=== PATIENT | female | born 1985 | race Caucasian/White ===

== ENCOUNTER 2023-08-04 18:00 | Outpatient (CLI) | payer MEDICAID, SELFPAY ==
[2023-08-04] VITALS (22 sets, daily range): BP systolic 117; BP diastolic 61; PULSE 101–139; RESP 18; TEMP 36.9; O2SAT 85–100; BMI 34.2
[2023-08-04 19:06] LABS: Color, Urine Yellow (Yellow); Glucose, Dipstick 100 mg/dl (Normal); Ketone-Dipstick 5 mg/dl (Negative); Leukocyte Esterase-Dipstick 25 /ul (Negative); Nitrite-Dipstick Negative (Negative); Occult Blood-Urine 10 /ul (Negative); Protein-Dipstick 30 mg/dl (Negative); Urine Bilirubin Dipstick 1 mg/dL (Negative); Urine Clarity Cloudy (Clear); Urine Urobilinogen 4 mg/dl (Normal)
[2023-08-04] MEDS: Lactated Ringers 1,000 ML 999 ML IV (19:40)
[2023-08-04 19:58] LABS: Hematocrit 30.5 % (37-47); Hemoglobin 9.8 g/dL (12.0-15.0); Mean Corp Hgb Conc 32.1 g/dL (32-36); Mean Corpuscular Hgb 28.2 pg (27.0-32.0); Mean Corpuscular Volume 87.9 fL (81-99); Mean Platelet Vol. 11.6 fl (6.2-12.0); Platelet Count 174 K/mm3 (150-450); RBC Distribution Width CV 13.7 % (11.6-14.6); RBC Distribution Width SD 43.5 fl (35.1-43.9); Red Blood Count 3.47 M/mm3 (4.2-5.4); White Blood Count 7.1 K/mm3 (4.4-11.0)
[2023-08-04 20:16] LABS: ALB/GLOB Ratio 0.6 RATIO (0.9-2.4); AST(SGOT) 27 U/L (15-37); Alanine Aminotransfer ALT/SGPT 23 U/L (13-56); Albumin, Serum 2.3 g/dL (3.2-5.0); Alkaline Phosphatase 163 U/L (45-117); Anion Gap 8 (5-15); BUN 4 mg/dL (7-18); Calcium,Total 8.9 mg/dL (8.5-10.1); Chloride 107 mmol/L (98-107); EST Glomerular Filtration Rate 147 mL/min (>60); Est Glom Filt Rate - Afr Amer 178 mL/min (>60); Estimated Creatinine Clearance 169.48 ml/min; Globulin 3.7 g/dL (2.2-4.2); Glucose 118 mg/dL (74-106); Sodium Level 136 mmol/L (136-145)
[2023-08-04] MEDS: Potassium Chloride Oral Tablet 20 MEQ PO (21:02)
[2023-08-04] MEDS: Acetaminophen 500 MG Tablet 1000 MG PO (22:13)
[2023-08-04] MEDS: Nitrofurantoin Macrocrystals 100 MG Capsule PO (22:13)
--- NOTE | 2023-08-15 14:02 | OB.TRI.NOTE ---
HPI - General HPI Narrative KIANNA NIX, is a 38 F who presents at 35w4d with BALJEET 09/03 for rule out labor. PFSH PFSH Home Medications NK 08/04/23 [History Last Taken Unknown] Allergy/AdvReac Type Severity Reaction Status Date / Time No Known Allergies Allergy Verified 08/04/23 18:30 NST FHR Rate Baby A Baseline: 155 Variability:: Moderate Accelerations:: 15 x 15 Decelerations:: None NST Reactive:: Yes Uterine Activity:: irregular Assessment & Plan (1) False labor: PLAN: Plan 1) False labor 2) D/C home
== END 2023-08-04 22:45 | disposition home or self-care (01) ==
LOC: WPOUT 18:12 → WP 18:13
PROVIDERS: Referring Provider Advanced Practice Midwife; Visit Provider Advanced Practice Midwife
DX: O47.03 False labor before 37 completed weeks of gestation, third trimester (principal); Z3A.35 35 weeks gestation of pregnancy
CPT/HCPCS: 96360; 59025; 59050; 80053; 81002; 85027; 87086; 87088; 99221; J7120; G0378

== ENCOUNTER 2023-08-22 09:45 | Outpatient (CLI) | payer MEDICAID, SELFPAY ==
[2023-08-22 10:05] VITALS: RESP 16; TEMP 36.7
[2023-08-22 10:07] VITALS: BP 112/66; PULSE 85
[2023-08-22 10:21] VITALS: BMI 34.8
[2023-08-22 11:00] VITALS: RESP 16; TEMP 36.7
--- NOTE | 2023-08-22 20:10 | OB.TRI.NOTE ---
HPI - General General Date of Service: 08/22/23 HPI Narrative KIANNA NIX, is a 38 F @ 38 weeks who presents c/o contractions PFSH PFSH Home Medications NK 08/04/23 [History Last Taken Unknown] Allergy/AdvReac Type Severity Reaction Status Date / Time No Known Allergies Allergy Verified 08/22/23 10:20 NST FHR Rate Baby A Baseline: 145 Variability:: Moderate Accelerations:: 15 x 15 Decelerations:: None NST Reactive:: Yes FHR Category:: Category I Uterine Activity:: irregular Assessment & Plan (1) False labor: PLAN: Plan @ 38 weeks false labor 1) unchanged cervical exam per RN- false labor- dc home 2) NSt reactive cat 1
== END 2023-08-22 11:10 | disposition home or self-care (01) ==
LOC: WPOUT 09:57 → WP 09:58
PROVIDERS: Referring Provider Obstetrics & Gynecology; Visit Provider Obstetrics & Gynecology
DX: O47.1 False labor at or after 37 completed weeks of gestation (principal); Z3A.38 38 weeks gestation of pregnancy
CPT/HCPCS: 59025; 59050; 99221; G0378

== ENCOUNTER 2023-08-29 07:00 | Inpatient (IN) | payer MEDICAID, SELFPAY ==
[2023-08-29] VITALS (63 sets, daily range): BP systolic 110–145; BP diastolic 59–85; PULSE 74–150; RESP 16–18; TEMP 36.5–37.2; O2SAT 80–100; BMI 34.9
[2023-08-29] MEDS: Lactated Ringers 1,000 ML 50 ML IV (07:39)
[2023-08-29] MEDS: LACTATED RINGERS 500 ML 999 ML IV ×2 (07:50→09:58)
[2023-08-29 07:55] LABS: Absolute Lymphocyte Count 1.68 X10^3/uL (0.83-4.51); Absolute Neutrophil Count 5.7 X10^3/uL (2.0-7.7); Basophil# 0.03 X10^3/uL; Basophil% 0.4 % (0-1); Eosinophil# 0.04 X10^3/uL; Eosinophils% 0.5 % (0-5); Hematocrit 33.8 % (37-47); Hemoglobin 10.9 g/dL (12.0-15.0); Lymphocyte # 1.68 X10^3/ul (0.83-4.51); Lymphocyte % 20.9 % (19-41); Mean Corp Hgb Conc 32.2 g/dL (32-36); Mean Corpuscular Hgb 27.8 pg (27.0-32.0); Mean Corpuscular Volume 86.2 fL (81-99); Mean Platelet Vol. 11.8 fl (6.2-12.0); Monocyte# 0.45 X10^3/uL; Monocyte% 5.6 % (0-10); NRBC Flagged by Analyzer 0 % (0-5); Neutrophil # 5.71 X10^3/uL (2.7-7.7); Neutrophil % 71.2 % (47-70); Platelet Count 201 K/mm3 (150-450); RBC Distribution Width CV 14.1 % (11.6-14.6); RBC Distribution Width SD 43.9 fl (35.1-43.9); Red Blood Count 3.92 M/mm3 (4.2-5.4)
[2023-08-29 08:39] LABS: Syphilis Antibodies Non-reactive
[2023-08-29] MEDS: Oxytocin 15 Units/NS 250ml 15 UNITS/250 ML IV.SOLN 2 UNITS IV (08:42)
[2023-08-29] MEDS: 0.9% Normal Saline Single 100 ML IV.SOLN. INTRA-UTER (08:48)
--- NOTE | 2023-08-29 08:50 | PCM.HP.OB ---
HPI - General General Date of Admission: 08/29/23 Date of Service: 08/29/23 HPI Narrative KIANNA NIX, is a 38 F who presents for induction. Maternal Data Information Final BALJEET: 09/04/23 Gestational age: 39&1 PFSH [facility] Medical History ADD (attention deficit disorder) Anxiety Depression Generalized headaches Vitamin B12 deficiency neuropathy Home Medications NK 08/04/23 [History Last Taken Unknown] Allergy/AdvReac Type Severity Reaction Status Date / Time No Known Allergies Allergy Verified 08/29/23 08:07 Surgical History History of surgery Social History Smoking Status: Former smoker History Elective abortions Hx Para 3 Spontaneous abortions Hx # Term Pregnancies Ectopic pregnancies Hx # Pregnancies Multiple births # of living children NST FHR Rate Baby A Baseline: 140 Variability:: Moderate Accelerations:: 15 x 15 Decelerations:: None Uterine Activity:: Irregular Vital Signs Vital Signs Vital Signs: 08/29/23 07:25 08/29/23 07:25 08/29/23 07:25 Temperature Temperature Source Temporal Pulse Rate 82 Respiratory Rate Blood Pressure 119/60 BP Systolic 119 BP Diastolic 60 08/29/23 07:25 08/29/23 07:25 08/29/23 08:44 Temperature 98.1 F Temperature Source Pulse Rate Respiratory Rate 16 Blood Pressure 113/77 BP Systolic 113 BP Diastolic 77 08/29/23 08:44 08/29/23 08:43 08/29/23 08:43 Temperature Temperature Source Temporal Pulse Rate 93 Respiratory Rate 16 Blood Pressure BP Systolic BP Diastolic 08/29/23 08:43 Temperature 97.8 F Temperature Source Pulse Rate Respiratory Rate Blood Pressure BP Systolic BP Diastolic Weight Weight: 203 lb 7.787 oz Body Mass Index (BMI) 34.9 Physical Exam Const alert Chest inspection of chest normal GI soft to palpation, non-tender and non-distended Inspection: gravid external exam normal Narrative: cvx - 1.5/80/-2 Extremity no calf tenderness Labs Labs Labs: Blood Type A NEGATIVE Antibody Screen NEGATIVE Hct 33.8 % (37-47) L Hgb 10.9 g/dL (12.0-15.0) L Syphilis Total Ab Non-reactive see [facility] H&P Assessment & Plan (1) 39 weeks gestation of : (2) Advanced maternal age (AMA) in : PLAN: Plan Admit to L&D Induction - intracervical cervantes placed and pitocin started Pain - epidural when desired GBS negative EFW - less than 4500g, patient with adequate pelvis Routine care
[2023-08-29] MEDS: fentaNYL-bupivacaine (epidural) 100 ML BAG EPIDURAL ×2 (10:51→15:13)
[2023-08-29] MEDS: Acetaminophen 500 MG Tablet PO (13:34)
[2023-08-29] MEDS: Lactated Ringers 1,000 ML 200 ML IV (14:53)
--- NOTE | 2023-08-29 17:16 | EX.PCM.OBRPT ---
Maternal Data Information Final BALJEET: 09/04/23 Gestational age: 39&1 Vaginal Delivery Maternal Presentation Maternal Presentation: Elective Induction Type of Induction: Pitocin, Shah Bulb and Amniotomy Operative Information Date of Procedure: 08/29/23 Pre-Operative Diagnosis: Advanced maternal age Post-Operative Diagnosis: Same Surgery / Procedure Performed: Spontaneous Vaginal Delivery Type of Anesthesia: Epidural Estimated Blood Loss: 500ml Findings Description of Procedure: Patient prepped & draped when C/C/+2. She pushed well to deliver the head. head gently guided to allow delivery of anterior and posterior shoulders. No excess traction placed on head. Body delivered and 3VC clamped & cut in delayed fashion. Placenta did not deliver with gentle traction and fundal massage. At 30+ minutes after delivery the placenta was manually extracted. The uterus was manually explored and confirmed to be free of products of conception. Good uterine tone obtained. Presentation: SHEYLA Amniotic Membrane Rupture Type: Artificial Amniotic Fluid Description: Clear Placental Delivery Description: Expressed Placenta Disposition: [facility] Specimen(s) Removed: Placenta Cord Vessel Description: 3 Vessels Cord Entanglement: None Infant A Gender: Male (Derrek) (1 minute): 8 (5 minute): 9 Delayed Cord Clamping: Yes Post Vaginal Delivery Medications Given After Delivery: IV Pitocin Episiotomy Description: None Laceration: None
[2023-08-29] MEDS: Oxytocin 15 Units/NS 250ml 15 UNITS/250 ML IV.SOLN 83 UNITS IV (17:30)
[2023-08-29] MEDS: Cefazolin 2 GM in 0.9% Normal Saline (100mL Bag) 100 ML IV (18:30)
[2023-08-29] MEDS: Ibuprofen 600 MG Tablet PO (18:30)
[2023-08-29 21:05] LABS: HIV - WCH Non-Reactive (Nonreactive); Hepatitis B Surface Antibody Non-Reactive; Hepatitis B Surface Antigen Non-Reactive (Nonreactive); Hepatitis C Antibody Non-Reactive (Nonreactive)
[2023-08-30] MEDS: Ibuprofen 600 MG Tablet PO ×3 (00:38→12:27)
[2023-08-30 00:41] VITALS: BP 121/73; PULSE 105; RESP 16; O2SAT 97
[2023-08-30] MEDS: Acetaminophen 500 MG Tablet 1000 MG PO ×3 (01:18→13:59)
[2023-08-30 04:20] VITALS: BP 120/75; PULSE 90; RESP 16
[2023-08-30 07:57] VITALS: BP 108/70; PULSE 94; RESP 16; O2SAT 99
--- NOTE | 2023-08-30 08:44 | PCM.PN.OB ---
Subjective Subjective Doing well. Ambulating and voiding well. . Would like to go home today. Objective Data Objective Data Vital Signs: Vital Signs Temp Pulse Resp BP Pulse Ox O2 Del Method 98.0 F 94 16 108/70 99 Room Air 08/29/23 19:50 08/30/23 07:57 08/30/23 07:57 08/30/23 07:57 08/30/23 07:57 08/30/23 07:57 Oxygen Delivery Method Room Air Weight: 92.3 kg Body Mass Index (BMI) 34.9 Intake & Output: Intake and Output for Last 24 Hours 08/28/23 08/29/23 08/30/23 23:59 23:59 23:59 Intake Total 2474.10 / 2474.10 1000 / 1000 Output Total 725 / 725 800 / 800 Balance 1749.10 / 1749.10 200 / 200 Lab / Micro Data 08/29/23 07:36 Labs: Laboratory Results - last 24 hr 08/29/23 07:36: Blood Type A NEGATIVE, Antibody Screen NEGATIVE 08/29/23 19:30: Hep Bs Antigen Non-Reactive, Hep Bs Antibody Non-Reactive, Hepatitis C Antibody Non-Reactive, HIV 1&2 Antibody Non-Reactive, Screen NEGATIVE, Baby's Blood Type A POSITIVE, Baby's HUSAM NEGATIVE Physical Exam Const alert and no apparent distress Narrative: Fundus firm, below umbilicus. Assessment & Plan (1) (spontaneous vaginal delivery): (2) Advanced maternal age (AMA) in : (3) 39 weeks gestation of : PLAN: Plan d/c today
[2023-08-30] MEDS: 0.9% Saline Lock 10 ML Syringe IV (12:28)
[2023-08-30] MEDS: Rho(D) Immune Globulin 300 MCG (1500 Unit) Syringe IV (12:28)
[2023-08-30 12:46] VITALS: BP 120/74; RESP 16
--- NOTE | 2023-08-30 18:14 | PCM.DC.SUM ---
Providers Date of Admission: 08/29/23 Date of Discharge: 08/30/23 Primary Care Physician: Sigrid Primary Care Phys Reason For Visit: VAGINAL DELIVERY Diagnosis Discharge Diagnosis (1) (spontaneous vaginal delivery): Status: Acute Code(s): O80 - Encounter for full-term uncomplicated delivery (2) Advanced maternal age (AMA) in : Status: Acute (3) 39 weeks gestation of : Status: Acute Code(s): Z3A.39 - 39 weeks gestation of Plan d/c today Medications at Discharge Home Medications NK 08/04/23 Hospital Course Operations None Procedures None Summary of Care Provided Minutes Spent on Discharge: 22 Hospital Course: Elective Induction of labor. Normal without complication. Breast feeding at discharge. Physical Exam Const alert and no apparent distress Narrative: Fundus firm, below umbilicus. Weight / BMI Weight Weight: 92.3 kg Body Mass Index (BMI) 34.9 ABG / Lab / Microbiology Data 08/29/23 07:36 Laboratory: Laboratory Results - last 24 hr 08/29/23 19:30: Hep Bs Antigen Non-Reactive, Hep Bs Antibody Non-Reactive, Hepatitis C Antibody Non-Reactive, HIV 1&2 Antibody Non-Reactive, Screen NEGATIVE, Baby's Blood Type A POSITIVE, Baby's HUSAM NEGATIVE D/C Instructions May resume sexual activity in: 6 weeks Please Follow Up With: Lyric Stallings MD When: Follow up with our office in 1-2 and 6 weeks or as needed. [phone] Meaningful Use Info Meaningful Use Meaningful Use Diagnoses (Choose all that apply): None applicable Ischemic Stroke Statin Dosing Therapy Reference: STATIN DOSE THERAPY REFERENCE: * Patients > 75 years receive moderate or high dose statin therapy. * Patients 75 years or YOUNGER should receive HIGH intensity statin dose unless contraindicated. You will be required to document reason for non-treatment if statin daily dose does not meet guidelines. HIGH DOSE STATIN THERAPY DAILY Atorvastatin > than or = to 40 mg Rosuvastatin > than or = to 20 mg Amlodipine + Atorvastatin > than or = to 2.5/40 mg Ezetimibe + Simvastatin 10/80 mg Simvastatin 80mg Discharge Plan Admission Admit Date/Time: 08/29/23 07:00 Primary Reason for Your Visit: Induction of labor Attending Provider: Shandra Munore Primary Care Provider: Care Physician,No Primary Instructions Patient Instructions: After a Vaginal Discharge Orders/Prescriptions Prescriptions: No Action NK Referrals / Follow Up: Care Physician,No Primary [Primary Care Provider] - Disposition Disposition (needs filled in before D/C Order can be placed): Home, Self Care
[2023-08-31 11:11] LABS: Hepatitis B Core Ab Total Negative (Negative)
--- NOTE | 2023-09-07 18:37 | NURSING ---
message left on voicemail explaining [facility] said there was insufficient sample on PKU. Offered to redraw prior to 10 days of life. Told to call unit for redraw. Mary Gomez RN
--- NOTE | 2023-09-18 10:29 | NURSING ---
Spoke with Norma Gonzales, deputy director of nursing, at the [facility]. Explained our efforts to get a hold of family to redraw the Metabolic Screen for . So far unsuccessful and message left was not returned by family. Follow up [employer] and [facility] both contacted. Norma said she would have a nurse go to residence and try to personally inform family and also provide a written letter specifying our request to provide them another redraw of this lab if they desire. This would be completed today 09/18/23. She will be in contact with me if she has any updates. Mary Gomez, nursery coordinator.
== END 2023-08-30 18:19 | disposition home or self-care (01) | DRG 560 ==
PROVIDERS: Admitting Provider Obstetrics & Gynecology; Referring Provider Obstetrics & Gynecology; Visit Provider Obstetrics & Gynecology
DX: O80 Encounter for full-term uncomplicated delivery (principal); Z37.0 Single live birth; Z3A.39 39 weeks gestation of pregnancy; Z87.891 Personal history of nicotine dependence
CPT/HCPCS: 59025; 59050; 85025; 85461; 86703; 86704; 86706; 86780; 86803; 86850; 86900; 86901; 87340; 90384; 99221; J7120; A4216; G0378; J2790; J2791

== ENCOUNTER → 2023-08-29 17:44 | Outpatient (REF) | payer SELFPAY | END | disposition home or self-care (01) | LOC: ED 17:44 | PROVIDERS: Visit Provider Student in an Organized Health Care Education/Training Program | DX: O80 Encounter for full-term uncomplicated delivery (principal) ==